=== PATIENT | female | born 1980 | race Caucasian/White ===

== ENCOUNTER → 2017-03-06 | Outpatient (CLI) | payer MEDICAID ==
--- NOTE | 2017-03-06 12:40 | RADIOLOGY REPORT (SQ) ---
EXAM DESCRIPTION: LUMBAR SPINE COMPLETE COMPLETED DATE/TIME: 03/06/2017 12:07 pm REASON FOR STUDY: RADICULOPATHY, LUMBAR REGION M54.16 RADICULOPATHY, LUMBAR REGION M25.561 PAIN IN RIGHT KNEE M25.562 PAIN IN LEFT KNEE COMPARISON: None. NUMBER OF VIEWS: Five views including obliques. TECHNIQUE: AP, lateral, oblique, and sacral radiographic images acquired of the lumbar spine. LIMITATIONS: None. FINDINGS: MINERALIZATION: Normal. SEGMENTATION: Normal. No transitional anatomy. ALIGNMENT: Normal. VERTEBRAE: Maintained height. No fracture or worrisome bone lesion. DISCS: There is mild narrowing of the disc spaces at L4-5 and L5-S1. POSTERIOR ELEMENTS: Pedicles and facets are intact. No pars defect or posterior arch defects. HARDWARE: None in the spine. PARASPINAL SOFT TISSUES: Normal. PELVIS: Intact as visualized. No fractures or worrisome bone lesions. SI joints intact. OTHER: No other significant finding. IMPRESSION: Mild degenerative disc changes as described. TECHNICAL DOCUMENTATION: JOB ID: [id number] [email or web address]- All Rights Reserved
--- NOTE | 2017-03-06 12:41 | RADIOLOGY REPORT (SQ) ---
EXAM DESCRIPTION: KNEE RIGHT 4 VIEWS COMPLETED DATE/TIME: 03/06/2017 12:07 pm REASON FOR STUDY: PAIN IN RIGHT KNEE M54.16 RADICULOPATHY, LUMBAR REGION M25.561 PAIN IN RIGHT KNE E M25.562 PAIN IN LEFT KNEE COMPARISON: None. NUMBER OF VIEWS: Four views. TECHNIQUE: AP, lateral, and both oblique radiographic images acquired of the right knee. LIMITATIONS: None. FINDINGS: MINERALIZATION: Normal. BONES: No acute fracture or dislocation. No worrisome bone lesions. JOINT: No effusion. SOFT TISSUES: No soft tissue swelling. No radio-opaque foreign body. OTHER: No other significant finding. IMPRESSION: NEGATIVE STUDY OF THE RIGHT KNEE. NO RADIOGRAPHIC EVIDENCE OF ACUTE INJURY. TECHNICAL DOCUMENTATION: JOB ID: [id number] [employer]- All Rights Reserved
--- NOTE | 2017-03-06 12:42 | RADIOLOGY REPORT (SQ) ---
EXAM DESCRIPTION: KNEE LEFT 4 VIEWS COMPLETED DATE/TIME: 03/06/2017 12:07 pm REASON FOR STUDY: PAIN IN LEFT KNEE M54.16 RADICULOPATHY, LUMBAR REGION M25.561 PAIN IN RIGHT KNEE M25.562 PAIN IN LEFT KNEE COMPARISON: None. NUMBER OF VIEWS: Four views. TECHNIQUE: AP, lateral, and both oblique radiographic images acquired of the left knee. LIMITATIONS: None. FINDINGS: MINERALIZATION: Normal. BONES: No acute fracture or dislocation. No worrisome bone lesions. JOINT: No effusion. SOFT TISSUES: No soft tissue swelling. No radio-opaque foreign body. OTHER: No other significant finding. IMPRESSION: NEGATIVE STUDY OF THE LEFT KNEE. NO RADIOGRAPHIC EVIDENCE OF ACUTE INJURY. TECHNICAL DOCUMENTATION: JOB ID: [id number] [email or web address]- All Rights Reserved
== END ==
LOC: OD 11:36
PROVIDERS: ATTEND Family Medicine
DX: M54.16 Radiculopathy, lumbar region (principal); M25.561 Pain in right knee; M25.562 Pain in left knee
CPT/HCPCS: 72110

== ENCOUNTER 2017-04-30 13:45 | Emergency (ER) | payer MEDICAID ==
[2017-04-30 13:53] VITALS: BP 133/85
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
--- NOTE | 2017-04-30 14:50 | RADIOLOGY REPORT (SQ) ---
EXAM DESCRIPTION: HAND RIGHT 3 VIEWS COMPLETED DATE/TIME: 04/30/2017 2:38 pm REASON FOR STUDY: right hand pain COMPARISON: None. EXAM PARAMETERS: NUMBER OF VIEWS: Three views. TECHNIQUE: AP, lateral and oblique radiographic images acquired of the right hand. LIMITATIONS: None. FINDINGS: MINERALIZATION: Normal. BONES: No acute fracture or dislocation. No worrisome bone lesions. JOINTS: No effusions. SOFT TISSUES: No soft tissue swelling. No foreign body. OTHER: No other significant finding. IMPRESSION: NEGATIVE STUDY OF THE RIGHT HAND. NO RADIOGRAPHIC EVIDENCE OF ACUTE INJURY. TECHNICAL DOCUMENTATION: JOB ID: [id number] [employer]- All Rights Reserved
== END 2017-04-30 15:02 | disposition home or self-care (01) ==
LOC: ER 13:45
DX: S16.1XXA Strain of muscle, fascia and tendon at neck level, initial encounter (principal); M54.9 Dorsalgia, unspecified; M54.2 Cervicalgia; M79.641 Pain in right hand; Y04.8XXA Assault by other bodily force, initial encounter
CPT/HCPCS: 99284

== ENCOUNTER 2017-05-06 11:28 | Emergency (ER) | payer MEDICAID ==
--- NOTE | 2017-05-06 11:43 | ER Document Report ---
ED Medical Screen (RME) - General Chief Complaint: Near Syncope Stated Complaint: DIZZINESS Time Seen by Provider: 05/06/17 11:41 Notes: Patient states that since yesterday she has been feeling "lightheaded, woozy, and dizzy." She also states she has had a near syncopal episode. She states she still feels this way this morning. She had one loose stool. She has had nausea. She denies any vomiting. She denies any problems with urination. She states she does take gabapentin for chronic pain but is been on this for approximately 1 month. She also states that she was started on some psychiatric medications 1 month ago including Abilify. She has never had similar symptoms in the past. TRAVEL OUTSIDE OF THE [place] IN LAST 30 DAYS: No - Related Data Allergies/Adverse Reactions: clonidine Allergy (Verified 04/30/17 13:52) ketorolac [From Toradol] Allergy (Verified 04/30/17 13:52) tramadol Allergy (Verified 04/30/17 13:52) Past Medical History - Social History Frequency of alcohol use: None Drug Abuse: None Renal/ Medical History: Denies: Hx Peritoneal Dialysis Physical Exam - Vital signs Vitals: Temp Pulse Resp BP Pulse Ox 98.6 F 80 99 H 124/85 99 05/06/17 11:32 05/06/17 11:32 05/06/17 11:32 05/06/17 11:32 05/06/17 11:32 Course - Vital Signs Vital signs: Temp Pulse Resp BP Pulse Ox 98.6 F 80 99 H 124/85 99 05/06/17 11:32 05/06/17 11:32 05/06/17 11:32 05/06/17 11:32 05/06/17 11:32
--- NOTE | 2017-05-06 12:03 | EKG REPORT ---
SEVERITY:- BORDERLINE ECG - SINUS RHYTHM INFERIOR Q WAVES, PROBABLY NORMAL VARIATION : Confirmed by: Oc Tena 06-May-2017 12:03:11
[2017-05-06 12:19] LABS: ABSOLUTE EOSINOPHILS # (AUTO) 0.2 10^3/uL (0.0-0.6); ABSOLUTE LYMPHOCYTES (AUTO) 1.9 10^3/uL (0.5-4.7); ABSOLUTE MONOCYTES (AUTO) 0.6 10^3/uL (0.1-1.4); ABSOLUTE NEUT (AUTO) 9.2 10^3/uL (1.7-8.2); BASOPHILS % (AUTO) 0.4 % (0-2); EOSINOPHILS % (AUTO) 1.6 % (0-6); HEMATOCRIT 35.5 % (36.0-47.0); HEMOGLOBIN 12.2 g/dL (12.0-15.5); HGB HCT DIFFERENCE 1.1; LYMPHOCYTES % (AUTO) 15.6 % (13-45); MEAN CORPUSCULAR HGB CONC 34.4 g/dL (32.0-36.0); MEAN CORPUSCULAR VOLUME 84 fl (80-97); MONOCYTES % (AUTO) 5.3 % (3-13); RED BLOOD COUNT 4.22 10^6/uL (3.72-5.28); RED CELL DISTRIBUTION WIDTH 13.7 % (11.5-14.0); SEGMENTED NEUTROPHILS % (AUTO) 77.1 % (42-78); WHITE BLOOD COUNT 11.9 10^3/uL (4.0-10.5)
[2017-05-06 12:43] LABS: ALANINE AMINOTRANSFERASE 21 U/L (9-52); ALBUMIN 4.5 g/dL (3.5-5.0); ALKALINE PHOSPHATASE 72 U/L (38-126); ANION GAP 14 (5-19); ASPARTATE AMINO TRANSFERASE 14 U/L (14-36); BILIRUBIN,DIRECT 0.4 mg/dL (0.0-0.4); BILIRUBIN,TOTAL 0.4 mg/dL (0.2-1.3); BLOOD UREA NITROGEN 13 mg/dL (7-20); CALCIUM 9.7 mg/dL (8.4-10.2); CARBON DIOXIDE 23 mmol/L (22-30); CHLORIDE 106 mmol/L (98-107); CREATININE RESULT 0.78 mg/dL (0.52-1.25); GLUCOSE 84 mg/dL (75-110); POTASSIUM 4.4 mmol/L (3.6-5.0); SODIUM 142.6 mmol/L (137-145); TOTAL PROTEIN 7.7 g/dL (6.3-8.2)
[2017-05-06 13:01] LABS: APPEARANCE,URINE CLEAR; BILIRUBIN,URINE NEGATIVE (NEGATIVE); GLUCOSE, URINE NEGATIVE (NEGATIVE); KETONES,URINE NEGATIVE (NEGATIVE); LEUKOCYTE ESTERASE,URINE TRACE (NEGATIVE); NITRITE,URINE NEGATIVE (NEGATIVE); PROTEIN,URINE NEGATIVE (NEGATIVE); URINE SPECIFIC GRAVITY 1.012; UROBILINOGEN,URINE NEGATIVE mg/dL (<2.0)
[2017-05-06] MEDS ORDERED: PROMETHAZINE HCL 25 MG TABLET PO ONE (13:41)
[2017-05-06] MEDS ORDERED: OXYCODONE-ACETAMINOPHEN 5-325 MG TABLET PO ONE (13:42)
[2017-05-06 14:42] VITALS: BP 111/96
--- NOTE | 2017-05-06 14:42 | ER Document Report ---
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 She said it was like she suddenly "woke up" and felt as if she might be going to pass out. She never actually lost consciousness. She has been experiencing lower abdominal pains for the past couple of months. Her PCP has ordered an ultrasound and it was done 3 weeks ago and has shown the patient to have endometriosis, fibroids, and ovarian cyst. She has a follow-up appointment with her physician in 9 days to discuss the results and plan of treatment. Patient says she has been nauseated but not vomiting. She had some diarrhea last night and this morning but not currently. She has had some lower mid abdominal pains, but these have been going on for him months. Says she has been feeling woozy. Denies any chest pain. Denies any UTI symptoms. LMP April 17. TRAVEL OUTSIDE OF THE [place] IN LAST 30 DAYS: No - Related Data Allergies/Adverse Reactions: clonidine Allergy (Verified 04/30/17 13:52) ketorolac [From Toradol] Allergy (Verified 04/30/17 13:52) tramadol Allergy (Verified 04/30/17 13:52) Home Medications: Current Home Medications Aripiprazole 10 mg PO DAILY 05/06/17 [History] Gabapentin 300 mg PO QAM 05/06/17 [History] Gabapentin 600 mg PO QHS 05/06/17 [History] Lamotrigine 2 tab PO DAILY 05/06/17 [History] Past Medical History - Social History Smoking Status: Current Every Day Smoker Frequency of alcohol use: None Drug Abuse: None Family History: Reviewed & Not Pertinent Patient has suicidal ideation: No Patient has homicidal ideation: No Psychiatric Medical History: Reports: Hx Bipolar Disorder, Hx Depression Past Surgical History: Reports: Hx Appendectomy, Hx Section Review of Systems - Review of Systems Notes: REVIEW OF SYSTEMS: CONSTITUTIONAL : Denies fever. EENT: Denies eye, ear, nose or mouth or throat pain or other symptoms. CARDIOVASCULAR: Denies chest pain. RESPIRATORY: Denies cough, chest congestion, or shortness of breath. GASTROINTESTINAL: See HPI. GENITOURINARY: Denies difficulty or painful urinating, urinary frequency, blood in urine. MUSCULOSKELETAL: Denies back or neck pain. Denies joint pain or swelling. SKIN: Denies rash or skin lesions. NEUROLOGICAL: Denies LOC or altered mental status. Denies headache. Denies sensory loss or motor deficits. ALL OTHER SYSTEMS REVIEWED AND NEGATIVE. Physical Exam - Vital signs Vitals: Temp Pulse Resp BP Pulse Ox 98.6 F 80 99 H 124/85 99 05/06/17 11:32 05/06/17 11:32 05/06/17 11:32 05/06/17 11:32 05/06/17 11:32 Interpretation: Normal - Notes Notes: PHYSICAL EXAMINATION: GENERAL: Well-appearing, in no acute distress. Anxious. Vital signs are all normal. HEAD: Atraumatic, normocephalic. NECK: Normal range of motion, supple. LUNGS: Breath sounds clear and equal bilaterally. HEART: Regular rate and rhythm without murmurs. ABDOMEN: Soft, mild tenderness in the lower abdomen, midline. No guarding or rebound. No masses felt. BACK: No tenderness throughout entire back. EXTREMITIES: Normal range of motion without pain. NEUROLOGICAL: Normal speech, normal gait. Normal sensory, motor, and reflex exams. Awake, alert, and oriented x3. Cranial nerves normal. PSYCH: Normal mood, normal affect. Anxious SKIN: Warm, dry, no rashes. Course - Re-evaluation Re-evalutation: 05/06/17 20:59 Labs essentially normal. Patient has just recently had an ultrasound of her pelvis showing endometriosis, fibroids, and ovarian cyst. I do not think we need to do another imaging procedure at this time. I do not think the patient has appendicitis. I am prescribing enough medication to hold the patient until she sees her physician in 9 days. - Vital Signs Vital signs: Temp Pulse Resp BP Pulse Ox 98.6 F 80 19 111/96 H 100 05/06/17 11:32 05/06/17 11:32 05/06/17 14:31 05/06/17 14:31 05/06/17 14:01 - Laboratory Result Diagrams: 05/06/17 11:58 05/06/17 11:58 Laboratory results interpreted by me: 05/06/17 05/06/17 11:58 11:58 WBC 11.9 H Hct 35.5 L Absolute Neutrophils 9.2 H Ur Leukocyte Esterase TRACE H Discharge - Discharge Clinical Impression: Near syncope, Abdominal pain, Vasovagal episode Condition: Stable Disposition: HOME, SELF-CARE Additional Instructions: NEAR SYNCOPAL EPISODE: Syncope or near syncope (fainting or near-fainting) can occur from many different health problems. Or it can be a simple fainting spell requiring no treatment. It is safe for you to go home, but further evaluation will likely be necessary. Your work-up may include tests for internal bleeding, heart disease, medication problems, or near-strokes. Tests are not always required, however, depending on the nature of your problem. The warning signs of an impending faint include: dizziness, lightheadedness , nausea, hot flashes, tingling, and weakness. If this happens, lay down and put your feet up, then wait until all of these symptoms have passed before standing up again. If these episodes become recurrent, or if you develop chest pain, heart palpitations, mental confusion, blurred vision, or headache, then you should call the physician, or go to the emergency room. ABDOMINAL PAIN: There are many causes of abdominal pain. Pain can mean a serious problem requiring surgery (such as appendicitis). It can also be an innocent problem that goes away on its own (such as a viral infection). Often, time must pass to determine the cause of pain. The physician does not feel that hospitalization is necessary, at present. Things may change within the next 24 hours. Call the doctor or come back for re- examination if any problems occur, such as: (1) Pain that becomes more severe, steady, or becomes concentrated in one specific area. Also, pain that is more severe with movement or coughing. (2) Vomiting that persists or becomes more frequent. (3) Blood in the vomitus, urine, or bowel movements. Blood in the stool may have a tarry or black appearance. (4) Shaking chills or fever greater than 100 degrees F. (5) The abdomen becomes more distended or swollen. (6) Bowel movements cease. (7) Failure to improve as expected. Vasovagal Symptoms Your symptoms seem to be due to a fall in blood pressure, caused by the interaction of your nervous system with your circulatory system. This can result in abnormally slow pulse rate, faintness, abnormal sensations, low blood pressure, difficulty with vision, or fainting (syncope). Vasovagal symptoms may be brought on by emotional distress, pain, dehydration, bleeding, or medication effects. Often, no cause can be identified. Your exam has revealed no signs of a serious problem. Usually, no further tests are required. However, if further workup has been recommended it's important that you follow up as instructed. Should you feel lightheaded or "about to faint," you should sit or lie down as quickly as possible. The episode will usually pass. Recurring symptoms will require further evaluation to determine the cause. Call the physician if you develop severe prolonged dizziness, headache, chest pain, shortness of breath, or other new symptoms. NORMAL EXAM AND WORKUP: At this time, your examination and workup show no significant abnormality. No significant abnormal physical findings are noted. All laboratory, EKG, and imaging (x-ray, CT scans, ultrasound) studies that were ordered show no significant abnormality. Although your examination and all studies that were ordered showed no significant abnormal finding, there are no examinations and no studies that are 100% accurate. There is always the possibility that some abnormality could exist and not be detected with physical examination or within the limits and capabilities of laboratory and other studies. You should return or follow up as you were instructed on your visit today for further evaluation if your symptoms do not resolve. ANTINAUSEA MEDICATION: You have been given a medication to suppress nausea and vomiting. This type of medication can be given as a shot, pill, or suppository. It will usually last for many hours. Pills and shots usually last six to eight hours, suppositories last about 12 hours. For the typical illness, only one or two doses of the medication may be necessary. Mild lightheadedness may occur. This type of medicine can cause drowsiness. Do not drive or operate dangerous machinery while under its influence. Do not mix with alcohol. See your doctor at once if you have muscle spasms or tightness, or uncontrollable motions (particularly of the neck, mouth, or jaw). Persistent vomiting or severe lightheadedness should also be evaluated by the physician. Ibuprofen Ibuprofen is an excellent, safe drug for pain control. In addition, it has potent antiinflammatory effects which are beneficial, especially in the treatment of injuries, arthritis, or tendonitis. It's best to take ibuprofen with food. Persons with ulcer disease or allergy to aspirin should notify their physician of this before taking ibuprofen. Take the medication exactly as prescribed. Don't take additional doses unless instructed to do so by your doctor. If you develop wheezing, shortness of breath, hives, faintness, stomach pain, vomiting, or dark black stools, return for re-evaluation at once. ORAL NARCOTIC MEDICATION: You have been given a prescription for pain control. This medication is a narcotic. It's best taken with food, as nausea can result if taken on an empty stomach. Don't operate machinery or drive within six hours of taking this medication. Do not combine this medicine with alcohol, or with any medication which can cause sedation (such as cold tablets or sleeping pills) unless you get permission from the physician. Narcotics tend to cause constipation. If possible, drink plenty of fluids and eat a diet high in fiber and fruits. FOLLOW-UP CARE: If you have been referred to a physician for follow-up care, call the physician s office for an appointment as you were instructed or within the next two days. If you experience worsening or a significant change in your symptoms, notify the physician immediately or return to the Emergency Department at any time for re-evaluation. Keep your appointment to see your [facility] doctors in 9 days for further medication and a treatment plan for your condition. Prescriptions: Oxycodone HCl/Acetaminophen [Percocet 5-325 mg Tablet] 1 - 2 tab PO Q4H PRN #20 tablet PRN Reason: Promethazine HCl [Phenergan 25 mg Tablet] 1 - 2 tab PO Q6H PRN #20 tablet PRN Reason: Forms: Return to Work Referrals: BARBY OSMAN DO [Primary Care Provider] - Follow up as needed
== END 2017-05-06 14:53 | disposition home or self-care (01) ==
LOC: ER 11:28
DX: R55 Syncope and collapse (principal); R42 Dizziness and giddiness; R10.9 Unspecified abdominal pain; F17.200 Nicotine dependence, unspecified, uncomplicated
CPT/HCPCS: 93005; 99284; 36415; 87086; 85025; 81025; 87088; 80053; 81001; 87186; 93010; J3490

== ENCOUNTER 2017-05-11 08:34 | Emergency (ER) | payer MEDICAID ==
[2017-05-11 09:54] LABS: ABSOLUTE BASOPHILS # (AUTO) 0.1 10^3/uL (0.0-0.2); ABSOLUTE EOSINOPHILS # (AUTO) 0.2 10^3/uL (0.0-0.6); ABSOLUTE LYMPHOCYTES (AUTO) 1.4 10^3/uL (0.5-4.7); ABSOLUTE MONOCYTES (AUTO) 0.5 10^3/uL (0.1-1.4); ABSOLUTE NEUT (AUTO) 7.1 10^3/uL (1.7-8.2); BASOPHILS % (AUTO) 0.8 % (0-2); EOSINOPHILS % (AUTO) 1.7 % (0-6); HEMATOCRIT 33.7 % (36.0-47.0); HEMOGLOBIN 11.5 g/dL (12.0-15.5); HGB HCT DIFFERENCE 0.8; MEAN CORPUSCULAR HEMOGLOBIN 28.9 pg (27.0-33.4); MEAN CORPUSCULAR HGB CONC 34.2 g/dL (32.0-36.0); MEAN CORPUSCULAR VOLUME 85 fl (80-97); MONOCYTES % (AUTO) 5.7 % (3-13); RED BLOOD COUNT 3.99 10^6/uL (3.72-5.28); RED CELL DISTRIBUTION WIDTH 13.9 % (11.5-14.0); SEGMENTED NEUTROPHILS % (AUTO) 76.8 % (42-78); WHITE BLOOD COUNT 9.2 10^3/uL (4.0-10.5)
[2017-05-11] MEDS ORDERED: ONDANSETRON 4 MG TAB.RAPDIS PO ONE (09:58)
--- NOTE | 2017-05-11 10:00 | ER Document Report ---
ED General - General Chief Complaint: Lower Abdominal Pain Stated Complaint: ABDOMINAL PAIN Time Seen by Provider: 05/11/17 09:12 TRAVEL OUTSIDE OF THE [place] IN LAST 30 DAYS: No - HPI Notes: Patient is a 37-year-old female with a history of endometriosis, uterine fibroids, ovarian cysts who presents the ED complaining of continued/worsening pelvic cramping and pain 1-2 months. Pt does have associated nausea w/o vomiting today. Patient states that she was evaluated a week or 2 ago and was given Percocets which she states she has been taking like candy and has not been helping as much. Patient states that she is scheduled to see STRUCTURES ENGINEER next week. She still eating and drinking without any difficulties. She still urinating and having normal bowel movements. She denies any vaginal discharge or odor. Patient states that she is sexually active in a monogamous relationship and her partners asymptomatic for any signs or symptoms of STDs. Denies any headache, fever, URI, sore throat, chest pain, palpitations, syncope , cough, shortness of breath, wheeze, dyspnea, abdominal pain, vomiting/diarrhea , urinary retention, dysuria, hematuria, or rash. Patient states that she has had 3 C-sections in the past as well as an appendectomy. - Related Data Allergies/Adverse Reactions: clonidine Allergy (Verified 05/11/17 08:37) ketorolac [From Toradol] Allergy (Verified 05/11/17 08:37) tramadol Allergy (Verified 05/11/17 08:37) Past Medical History - Social History Smoking Status: Current Every Day Smoker Chew tobacco use (# tins/day): No Frequency of alcohol use: None Drug Abuse: None Family History: Reviewed & Not Pertinent Patient has suicidal ideation: No Patient has homicidal ideation: No Renal/ Medical History: Denies: Hx Peritoneal Dialysis Psychiatric Medical History: Reports: Hx Bipolar Disorder, Hx Depression Past Surgical History: Reports: Hx Appendectomy, Hx Section Review of Systems - Review of Systems Notes: REVIEW OF SYSTEMS: CONSTITUTIONAL : Denies fever, chills, or sweats. Denies recent illness. EENT: Denies eye, ear, throat, or mouth pain or symptoms. Denies nasal or sinus congestion or discharge. Denies throat, tongue, or mouth swelling or difficulty swallowing. CARDIOVASCULAR: Denies chest pain. Denies palpitations or racing or irregular heart beat. Denies ankle edema. RESPIRATORY: Denies cough, cold, or chest congestion. Denies shortness of breath, difficulty breathing, or wheezing. GASTROINTESTINAL: see hpi GENITOURINARY: Denies difficulty urinating, painful urination, burning, frequency, blood in urine, or discharge. FEMALE GENITOURINARY: see hpi. Denies vaginal bleeding, heavy or abnormal periods, irregular periods. Denies vaginal discharge or odor. MUSCULOSKELETAL: Denies back or neck pain or stiffness. Denies joint pain or swelling. SKIN: Denies rash, lesions or sores. NEUROLOGICAL: Denies confusion or altered mental status. Denies passing out or loss of consciousness. Denies dizziness or lightheadedness. Denies headache. Denies weakness or paralysis or loss of use of either side. Denies problems with gait or speech. Denies sensory loss, numbness, or tingling. ALL OTHER SYSTEMS REVIEWED AND NEGATIVE. Dictation was performed using [employer] voice recognition software Physical Exam - Vital signs Vitals: Temp Pulse Resp BP Pulse Ox 98.6 F 80 18 129/87 H 100 05/11/17 08:37 05/11/17 08:37 05/11/17 08:37 05/11/17 08:37 05/11/17 08:37 Notes: PHYSICAL EXAMINATION: GENERAL: Well-appearing, well-nourished and in no acute distress. LUNGS: Breath sounds clear to auscultation bilaterally and equal. No wheezes rales or rhonchi. HEART: Regular rate and rhythm without murmurs ABDOMEN: Soft, nontender, nondistended abdomen. No guarding, no rebound. No masses appreciated. Normal bowel sounds present. CVA tenderness negative bilaterally. Female : + mild pelvic tenderness b/l. No inguinal adenopathy. External genitalia without erythema, lesions, or masses. Vaginal mucosa pink with scant white discharge. Cervix parous, pink, and without discharge. Uterus is smooth. No adnexal tenderness. Musculoskeletal: LE's b/l: FROM to passive/active. Strength 5+/5. Extremities: No cyanosis/clubbing/edema b/l. Peripheral pulses 2+. Capillary refill less than 3 seconds. NEUROLOGICAL: Normal speech, normal gait. Normal sensory, motor exams PSYCH: Normal mood, normal affect. SKIN: Warm, Dry, normal turgor, no rashes or lesions noted. Course - Re-evaluation Re-evalutation: 05/11/17 11:00 Patient is an afebrile, well-hydrated, 37-year-old female who presents the ED with pelvic pain and bacterial vaginosis. Vitals are stable. PE otherwise unremarkable at this time. Transvaginal ultrasound was unremarkable for any acute pathology. CBC, CMP, urinalysis, urine were all negative. Wet mount did show bacterial vaginosis without any trichomonas. Chlamydia/ gonorrhea are pending. Patient was given Zithromax 1g PO and Rocephin 250 mg IM as precautionary. Patient to call back in a few hours or she will be called if a positive test is found. Tylenol/ibuprofen given for pain control today. Low suspicion/risk for acute appendicitis, bowel obstruction, acute cholecystitis, acute cholangitis, perforated diverticulitis, incarcerated hernia , pancreatitis, perforated ulcer, peritonitis, sepsis, pelvic inflammatory disease, ectopic , tubo-ovarian abscess, ovarian torsion, or other systemic emergent condition at this time. Patient is aware that her condition can change from initial presentation and she needs to monitor symptoms closely and seek medical attention if any acute changes. I will send her home with a Rx for flagyl, naproxen, and zofran. Pt tolerating PO intake. Conservative measures otherwise for symptoms. Recheck with OBGYN as scheduled next week or sooner if warranted. Recheck with your PCM this week as well. Return to the ED with any worsening/concerning symptoms otherwise as reviewed in discharge. Patient is in agreement. - Vital Signs Vital signs: Temp Pulse Resp BP Pulse Ox 98.6 F 80 18 129/87 H 100 05/11/17 08:37 05/11/17 08:37 05/11/17 08:37 05/11/17 08:37 05/11/17 08:37 - Laboratory Result Diagrams: 05/11/17 09:45 05/11/17 09:45 Laboratory results interpreted by me: 05/11/17 05/11/17 09:45 09:45 Hgb 11.5 L Hct 33.7 L AST 12 L Discharge - Discharge Clinical Impression: Pelvic pain, BV (bacterial vaginosis) Condition: Stable Disposition: HOME, SELF-CARE Instructions: Pelvic Pain ([facility]), Vaginosis, Bacterial ([facility]), Metronidazole ([facility] ) Additional Instructions: Push fluids Proper hygenic technique Keep the skin clean Tylenol/ibuprofen as needed Take medications as directed F/u with your PCM this week for a recheck Keep scheduled appointment with OBGYN next week Return to the ED with any worsening symptoms and/or development of fever, headache, chest pain, palpitations, syncope, shortness of breath, trouble breathing, abdominal pain, flank pain, n/v/d, blood in stool/urine, dysuria, hematuria, vaginal discharge/bleeding, or other worsening symptoms that are concerning to you. Prescriptions: Metronidazole [Flagyl] 500 mg PO BID #14 tablet Naproxen 500 mg PO BID PRN #30 tablet PRN Reason: Ondansetron [Zofran Odt 4 mg Tablet] 1 - 2 tab PO Q4H PRN #15 tab.rapdis PRN Reason: For Nausea/Vomiting Forms: Elevated Blood Pressure, Smoking Cessation Education Referrals: [facility] [Provider Group] - Follow up as needed BARBY OSMAN DO [Primary Care Provider] - Follow up in 3-5 days
[2017-05-11] MEDS ORDERED: IBUPROFEN 600 MG TABLET PO ONE (10:03)
[2017-05-11] MEDS ORDERED: ACETAMINOPHEN 325 MG TABLET PO ONE (10:03)
[2017-05-11 10:12] LABS: ALANINE AMINOTRANSFERASE 18 U/L (9-52); ALBUMIN 3.7 g/dL (3.5-5.0); ALKALINE PHOSPHATASE 59 U/L (38-126); ANION GAP 8 (5-19); ASPARTATE AMINO TRANSFERASE 12 U/L (14-36); BILIRUBIN,DIRECT 0.3 mg/dL (0.0-0.4); BILIRUBIN,TOTAL 0.3 mg/dL (0.2-1.3); BLOOD UREA NITROGEN 16 mg/dL (7-20); CALCIUM 9.8 mg/dL (8.4-10.2); CARBON DIOXIDE 25 mmol/L (22-30); CHLORIDE 107 mmol/L (98-107); CREATININE RESULT 0.72 mg/dL (0.52-1.25); GLUCOSE 89 mg/dL (75-110); POTASSIUM 4.2 mmol/L (3.6-5.0); SODIUM 140.3 mmol/L (137-145); TOTAL PROTEIN 6.6 g/dL (6.3-8.2)
[2017-05-11 10:16] LABS: APPEARANCE,URINE SLIGHTLY-CLOUDY; BILIRUBIN,URINE NEGATIVE (NEGATIVE); GLUCOSE, URINE NEGATIVE (NEGATIVE); KETONES,URINE NEGATIVE (NEGATIVE); LEUKOCYTE ESTERASE,URINE NEGATIVE (NEGATIVE); NITRITE,URINE NEGATIVE (NEGATIVE); PROTEIN,URINE NEGATIVE (NEGATIVE); URINE SPECIFIC GRAVITY 1.018; UROBILINOGEN,URINE NEGATIVE mg/dL (<2.0)
[2017-05-11] MEDS ORDERED: LIDOCAINE 1% INJ-PF (10 MG/ML) 30 ML SDV INJ ONE (10:33)
[2017-05-11] MEDS ORDERED: AZITHROMYCIN 250 MG TABLET PO ONE (10:33)
[2017-05-11] MEDS ORDERED: CEFTRIAXONE INJ 1000 MG VIAL IM ONE (10:33)
--- NOTE | 2017-05-11 10:58 | RADIOLOGY REPORT (SQ) ---
EXAM DESCRIPTION: U/S NON OB PEL TV W/DOPPLER COMPLETED DATE/TIME: 05/11/2017 10:50 am REASON FOR STUDY: pelvic pain COMPARISON: None. TECHNIQUE: Dynamic and static grayscale images acquired of the pelvis via transvaginal approach and recorded on PACS. Additional selected color Doppler and spectral images recorded. LIMITATIONS: None. FINDINGS: UTERUS: Contour normal. No mass. ENDOMETRIAL STRIPE: No focal or generalized thickening. No masses. CERVIX: No nabothian cysts. RIGHT OVARY: No abnormal masses. RIGHT OVARY DOPPLER: Normal arterial vascular flow without evidence for torsion. LEFT OVARY: No abnormal masses. LEFT OVARY DOPPLER: Normal arterial vascular flow without evidence for torsion. FREE FLUID: Mild free fluid which is likely physiologic. OTHER: No other significant finding. MEASUREMENTS: UTERUS: 10.2 x 6.3 x 5.7 cm. ENDOMETRIAL STRIPE: 12 mm. RIGHT OVARY: 3.7 x 2.4 x 2.5 cm. LEFT OVARY: 3.0 x 2.1 x 1.5 cm. IMPRESSION: NORMAL TRANSVAGINAL PELVIC ULTRASOUND. TECHNICAL DOCUMENTATION: JOB ID: [id number] [email or web address]- All Rights Reserved
[2017-05-11 11:32] VITALS: BP 132/81
[2017-05-11 11:40] LABS: CHLAM PCR NOT DETECTED (NOT DETECT)
== END 2017-05-11 11:31 | disposition home or self-care (01) ==
LOC: ER 08:34
DX: N76.0 Acute vaginitis (principal); B96.89 Other specified bacterial agents as the cause of diseases classified elsewhere; R10.2 Pelvic and perineal pain; R11.0 Nausea; F17.200 Nicotine dependence, unspecified, uncomplicated; Z88.8 Allergy status to other drugs, medicaments and biological substances; Z88.5 Allergy status to narcotic agent; Z87.42 Personal history of other diseases of the female genital tract; Z90.49 Acquired absence of other specified parts of digestive tract
CPT/HCPCS: 99284; 96372; 36415; 87210; 85025; 81025; 80053; 81001; 87491; 87591; 76830; 93976; J3490 ×3; Q0144; S0119; J0696

== ENCOUNTER 2020-06-10 17:08 | Observation (INO) | payer SELFPAY ==
--- NOTE | 2020-06-10 17:24 | ER Document Report ---
ED Medical Screen (RME) - General Chief Complaint: Numbness of Arm Stated Complaint: LEFT ARM NUMBNESS,FACIAL TINGLING Time Seen by Provider: 06/10/20 17:18 Mode of Arrival: Ambulatory Information source: Patient Notes: 40-year-old female presents to ED for complaint of blurry vision pain and numbness in her right arm and could not think about what she supposed to do while she was in the [employer] parking lot. He states it lasted maybe about 5 to 10 minutes. She states then she was driving down the road and her right arm got normal. She states that lasted for 5 minutes and then came back. She states then the left arm became numb and heavy and this is lasted about 30 minutes now. She states it feels like it is just and hanging there. She does not have any facial droop, palmar drift, shift to her tongue. And is able to answer all questions appropriately. She is able to move both arms with full range of motion. She is able to lift both legs with no difficulty. I did order the stroke protocol due to the symptoms she was displaying. She will also need cardiac work-up due to the numbness in her pain and while I was talking to her she stated that her jaw started feeling weird. I have greeted and performed a rapid initial assessment of this patient. A comprehensive ED assessment and evaluation of the patient, analysis of test results and completion of medical decision making process will be conducted by an additional ED providers. TRAVEL OUTSIDE OF THE [place] IN LAST 30 DAYS: No - Related Data Allergies/Adverse Reactions: clonidine Allergy (Verified 05/11/17 08:37) ketorolac [From Toradol] Allergy (Verified 05/11/17 08:37) tramadol Allergy (Verified 05/11/17 08:37) Past Medical History Renal/ Medical History: Denies: Hx Peritoneal Dialysis Psychiatric Medical History: Reports: Hx Bipolar Disorder, Hx Depression Past Surgical History: Reports: Hx Appendectomy, Hx Section
[2020-06-10] MEDS ORDERED: ASPIRIN 325 MG TABLET PO ONE (17:38)
--- NOTE | 2020-06-10 17:39 | ER Document Report ---
ED Neuro Symptoms/Deficit - General Chief Complaint: Numbness of Arm Stated Complaint: LEFT ARM NUMBNESS,FACIAL TINGLING Time Seen by Provider: 06/10/20 17:18 Mode of Arrival: Ambulatory Notes: HPI: Patient is a 40-year-old female that presents today stating around 45 minutes prior to arrival she started to feel some numbness to her right hand and some blurry vision. She states she then started to feel some weakness to her left arm. This lasted around 10 to 15 minutes. She states very mild frontal headache that resolved spontaneously. No chest pain, shortness of breath, palpitations, calf pain or leg swelling. No recent trips or travel. No history of this previously. She states her father had a myocardial infarction at the age of 40. She is currently without symptoms. She was called as a code stroke from the front. ROS: See HPI All other review of systems reviewed and otherwise negative Reviewed vital signs and nursing note as charted by RN. PHYSICAL EXAM: CONSTITUTIONAL: Alert and oriented and responds appropriately to questions. Well-appearing; well-nourished HEAD: Normocephalic; atraumatic EYES: PERRL; full extraocular range of motion without nystagmus ENT: Normal nose; no rhinorrhea; moist mucous membranes; pharynx without lesions noted NECK: Supple without meningismus; non-tender; no cervical lymphadenopathy, no masses CARD: Regular rate and rhythm; no murmurs; symmetric distal pulses RESP: Normal chest excursion without splinting or tachypnea; breath sounds clear and equal bilaterally ABD/GI: Normal bowel sounds; non-distended; soft, non-tender BACK: The back appears normal and is non-tender to palpation EXT: Normal ROM in all joints; non-tender to palpation; no edema SKIN: No acute lesions noted NEURO: CN 2-12 intact; 5/5 bilateral upper and lower extremity strength with sensation intact to light touch; no cerebellar deficits PSYCH: The patient's mood and manner are appropriate. Grooming and personal hygiene are appropriate. TRAVEL OUTSIDE OF THE [place] IN LAST 30 DAYS: No - Related Data Allergies/Adverse Reactions: clonidine Allergy (Verified 05/11/17 08:37) ketorolac [From Toradol] Allergy (Verified 05/11/17 08:37) tramadol Allergy (Verified 05/11/17 08:37) Past Medical History - General Information source: Patient - Social History Smoking Status: Unknown if Ever Smoked Family History: Reviewed & Not Pertinent Renal/ Medical History: Denies: Hx Peritoneal Dialysis Psychiatric Medical History: Reports: Hx Bipolar Disorder, Hx Depression Past Surgical History: Reports: Hx Appendectomy, Hx Section Physical Exam - Vital signs Vitals: Temp Pulse Resp BP Pulse Ox 97.8 F 78 18 148/91 H 99 06/10/20 17:19 06/10/20 17:19 06/10/20 17:19 06/10/20 17:19 06/10/20 17:19 Course - Re-evaluation Re-evalutation: Given the above history and physical examination the patient was taken immediately to CT scan. NIH score was 0. Van negative. I do not believe that the patient is a TPA candidate or an extraction candidate at this time. 06/10/20 17:40 CT as recorded. Aspirin has been provided. Given the time onset of symptomatology with a CT scan performed in 90 minutes, I do believe the risk of a missed subarachnoid hemorrhage to be extraordinarily unlikely. Especially given that the patient has no pain at this time. EKG shows a heart rate of 85, normal sinus rhythm, normal axis, no ST elevation or depression. 06/10/20 18:11 No change in exam. Labs as recorded. Patient will be admitted for further evaluation and treatment. - Vital Signs Vital signs: Temp Pulse Resp BP Pulse Ox 97.8 F 90 18 139/87 H 99 06/10/20 17:46 06/10/20 17:46 06/10/20 17:46 06/10/20 17:46 06/10/20 17:46 - Laboratory Result Diagrams: 06/10/20 17:34 06/10/20 17:34 Laboratory results interpreted by me: 06/10/20 06/10/20 06/10/20 17:32 17:34 17:34 WBC 13.2 H MCV 79 L MCH 26.8 L RDW 15.6 H Lymph % (Auto) 7.8 L Absolute Neuts (auto) 11.0 H Seg Neutrophils % 83.7 H Glucose 125 H POC Glucose 136 H Discharge - Discharge Clinical Impression: Right arm numbness, Aphasia Condition: Fair Disposition: ADMITTED OBSERVATION Admitting Provider: Dez (Hospitalist) Unit Admitted: Telemetry
--- NOTE | 2020-06-10 17:42 | RADIOLOGY REPORT (SQ) ---
EXAM DESCRIPTION: CT HEAD WITHOUT IMAGES COMPLETED DATE/TIME: 06/10/2020 5:29 pm REASON FOR STUDY: possible stroke COMPARISON: None. TECHNIQUE: Axial images acquired through the brain without intravenous contrast. Images reviewed wi th bone, brain and subdural windows. Additional sagittal and coronal reconstructions were generated. Images stored on PACS. All CT scanners at this facility use dose modulation, iterative reconstruction, and/or weight based d osing when appropriate to reduce radiation dose to as low as reasonably achievable (ALARA). [facility]: Dose Right [facility]: CareDose [facility]: Dose Right [facility]: Teradose 4D [facility]: [email or web address] RADIATION DOSE: CT Rad equipment meets quality standard of care and radiation dose reduction techniq ues were employed. CTDIvol: 53.2 mGy. DLP: 1017 mGy-cm. mGy. LIMITATIONS: None. FINDINGS: VENTRICLES: Normal size and contour. CEREBRUM: No masses. No hemorrhage. No midline shift. No evidence for acute infarction. Normal gra y/white matter differentiation. No areas of low density in the white matter. CEREBELLUM: No masses. No hemorrhage. No alteration of density. No evidence for acute infarction. EXTRAAXIAL SPACES: No fluid collections. No masses. ORBITS AND GLOBE: No intra- or extraconal masses. Normal contour of globe without masses. CALVARIUM: No fracture. PARANASAL SINUSES: No fluid or mucosal thickening. SOFT TISSUES: No mass or hematoma. OTHER: No other significant finding. IMPRESSION: NORMAL BRAIN CT WITHOUT CONTRAST. EVIDENCE OF ACUTE STROKE: NO. COMMENT: Pertinent positive or negative findings of the imaging study reported as a CRITICAL EXAM t o the ED provider at17:36 on 06/10/2020. Category of Critical Exam: Stroke alert. Quality ID # [id number]: Final reports with documentation of one or more dose reduction techniques (e.g., Au tomated exposure control, adjustment of the mA and/or kV according to patient size, use of iterative reconstruction technique) TECHNICAL DOCUMENTATION: JOB ID: [id number] 2010 [email or web address]- All Rights Reserved Reading location - IP/workstation name: [email or web address]
--- NOTE | 2020-06-10 17:43 | RADIOLOGY REPORT (SQ) ---
EXAM DESCRIPTION: CHEST SINGLE VIEW IMAGES COMPLETED DATE/TIME: 06/10/2020 5:29 pm REASON FOR STUDY: possible stroke COMPARISON: None. EXAM PARAMETERS: NUMBER OF VIEWS: One view. TECHNIQUE: Single frontal radiographic view of the chest acquired. RADIATION DOSE: NA LIMITATIONS: None. FINDINGS: LUNGS AND PLEURA: No opacities, masses or pneumothorax. No pleural effusion. MEDIASTINUM AND HILAR STRUCTURES: No masses. Contour normal. HEART AND VASCULAR STRUCTURES: Heart normal in size. Normal vasculature. BONES: No acute findings. HARDWARE: None in the chest. OTHER: No other significant finding. IMPRESSION: NO ACUTE RADIOGRAPHIC FINDING IN THE CHEST. TECHNICAL DOCUMENTATION: JOB ID: [id number] 2010 [email or web address]- All Rights Reserved Reading location - IP/workstation name: [email or web address]
[2020-06-10 17:51] LABS: ABSOLUTE BASOPHILS # (AUTO) 0.1 10^3/uL (0.0-0.2); ABSOLUTE EOSINOPHILS # (AUTO) 0.2 10^3/uL (0.0-0.6); ABSOLUTE MONOCYTES (AUTO) 0.8 10^3/uL (0.1-1.4); BASOPHILS % (AUTO) 0.8 % (0-2); EOSINOPHILS % (AUTO) 1.4 % (0-6); HEMATOCRIT 36.5 % (36.0-47.0); HEMOGLOBIN 12.3 g/dL (12.0-15.5); LYMPHOCYTES % (AUTO) 7.8 % (13-45); MEAN CORPUSCULAR HEMOGLOBIN 26.8 pg (27.0-33.4); MEAN CORPUSCULAR HGB CONC 33.8 g/dL (32.0-36.0); MEAN CORPUSCULAR VOLUME 79 fl (80-97); MONOCYTES % (AUTO) 6.3 % (3-13); PLATELET COUNT 383 10^3/uL (150-450); RED BLOOD COUNT 4.61 10^6/uL (3.72-5.28); RED CELL DISTRIBUTION WIDTH 15.6 % (11.5-14.0); SEGMENTED NEUTROPHILS % (AUTO) 83.7 % (42-78); TOTAL CELLS COUNTED % (AUTO) 100 %; WHITE BLOOD COUNT 13.2 10^3/uL (4.0-10.5)
[2020-06-10 17:52] LABS: INTERNATIONAL RATION (INR) 0.97; PROTHROMBIN TIME 13.1 SEC (11.4-15.4)
[2020-06-10 17:53] LABS: PARTIAL THROMBOPLASTIN TIME 27.9 SEC (23.5-35.8)
[2020-06-10 18:05] LABS: ALBUMIN 4.2 g/dL (3.5-5.0); ALKALINE PHOSPHATASE 74 U/L (38-126); ANION GAP 9 (5-19); ASPARTATE AMINO TRANSFERASE 19 U/L (14-36); BILIRUBIN,DIRECT 0.2 mg/dL (0.0-0.4); BILIRUBIN,TOTAL 0.3 mg/dL (0.2-1.3); BLOOD UREA NITROGEN 11 mg/dL (7-20); CALCIUM 9.4 mg/dL (8.4-10.2); CARBON DIOXIDE 23 mmol/L (22-30); CHLORIDE 107 mmol/L (98-107); CREATINE KINASE 54 U/L (30-135); GLUCOSE 125 mg/dL (75-110); TOTAL PROTEIN 7.3 g/dL (6.3-8.2)
[2020-06-10 18:17] LABS: CREATINE KINASE MB 1.14 ng/mL (<4.55); TROPONIN I < 0.012 ng/mL
[2020-06-10] MEDS ORDERED: ONDANSETRON 4 MG TAB.RAPDIS PO PRN (18:30)
[2020-06-10] MEDS ORDERED: ACETAMINOPHEN 325 MG TABLET PO PRN (18:30)
[2020-06-10] MEDS ORDERED: DEXTROSE 5%-1/2 NORMAL SALINE 1,000 ML IV PRN (18:48)
--- NOTE | 2020-06-10 18:48 | PDOC H&P ---
History of Present Illness Admission Date/PCP: 06/10/20 18:17 Patient complains of: Numbness and tingling in both upper extremity which started this afternoon. Patient states symptoms have completely resolved. History of Present Illness: JOSELO PIERSON is a 40 year old female Who presented emergency room with numbness and tingling of upper extremity. Patient states she also had some loss of vision in both eyes. There was no associated nausea vomiting although she states she had like a posterior headaches. She said the symptoms lasted for about 2 hours. She went on to walk she was on her way and because her symptoms persisted she decided to come to the emergency room to get checked. She however says her symptoms are resolved by the time of my exam. She denies any prior history of such symptoms. She does smoke about a pack of cigarettes a week and denies any current alcohol abuse or drug use. She denies any other medication use. She denies any significant medical history Past Medical History Medical History: None Psychiatric Medical History: Reports: Bipolar Disorder, Depression Hematology: Reports: None Past Surgical History Past Surgical History: Reports: Appendectomy, Section Social History Smoking Status: Unknown if Ever Smoked - Advance Directive Resuscitation Status: Full Code Family History Family History: Reviewed & Not Pertinent Parental Family History Reviewed: Yes Children Family History Reviewed: No Sibling(s) Family History Reviewed.: No Medication/Allergy Home Medications: Aripiprazole 10 mg PO DAILY 05/06/17 Gabapentin 300 mg PO QAM 05/06/17 Gabapentin 600 mg PO QHS 05/06/17 Lamotrigine 2 tab PO DAILY 05/06/17 Oxycodone HCl/Acetaminophen [Percocet 5-325 mg Tablet] 1 - 2 tab PO Q4H PRN #20 tablet 05/06/17 Promethazine HCl [Phenergan 25 mg Tablet] 1 - 2 tab PO Q6H PRN #20 tablet 05/06/17 Metronidazole [Flagyl] 500 mg PO BID #14 tablet 05/11/17 Naproxen 500 mg PO BID PRN #30 tablet 05/11/17 Ondansetron [Zofran Odt 4 mg Tablet] 1 - 2 tab PO Q4H PRN #15 tab.rapdis 05/11/17 Allergies/Adverse Reactions: clonidine Allergy (Verified 05/11/17 08:37) ketorolac [From Toradol] Allergy (Verified 05/11/17 08:37) tramadol Allergy (Verified 05/11/17 08:37) Review of Systems Constitutional: ABSENT: chills, fever(s), headache(s), weight gain, weight loss Eyes: ABSENT: visual disturbances Ears: ABSENT: hearing changes Cardiovascular: ABSENT: chest pain, dyspnea on exertion, edema, orthropnea, palpitations Respiratory: ABSENT: cough, hemoptysis Gastrointestinal: ABSENT: abdominal pain, constipation, diarrhea, hematemesis, hematochezia, nausea, vomiting Genitourinary: ABSENT: dysuria, hematuria Musculoskeletal: ABSENT: joint swelling Integumentary: ABSENT: rash, wounds Neurological: ABSENT: abnormal gait, abnormal speech, confusion, dizziness, focal weakness, syncope Psychiatric: ABSENT: anxiety, depression, homidical ideation, suicidal ideation Endocrine: ABSENT: cold intolerance, heat intolerance, polydipsia, polyuria Hematologic/Lymphatic: ABSENT: easy bleeding, easy bruising Physical Exam Vital Signs: Temp Pulse Resp BP Pulse Ox 97.8 F 90 18 139/87 H 99 06/10/20 17:46 06/10/20 17:46 06/10/20 17:46 06/10/20 17:46 06/10/20 17:46 Intake & Output 06/09/20 06/10/20 06/11/20 06:59 06:59 06:59 Weight 97.7 kg General appearance: PRESENT: no acute distress, well-developed, well-nourished Head exam: PRESENT: atraumatic, normocephalic Eye exam: PRESENT: conjunctiva pink, EOMI, PERRLA. ABSENT: scleral icterus Ear exam: PRESENT: normal external ear exam Mouth exam: PRESENT: moist, tongue midline Neck exam: ABSENT: carotid bruit, JVD, lymphadenopathy, thyromegaly Respiratory exam: PRESENT: clear to auscultation mary. ABSENT: rales, rhonchi, wheezes Cardiovascular exam: PRESENT: RRR, +S1, +S2. ABSENT: diastolic murmur, rubs, systolic murmur Pulses: PRESENT: normal dorsalis pedis pul Vascular exam: PRESENT: normal capillary refill GI/Abdominal exam: PRESENT: normal bowel sounds, soft. ABSENT: distended, guarding, mass, organolmegaly, rebound, tenderness Rectal exam: PRESENT: deferred Extremities exam: PRESENT: full ROM. ABSENT: calf tenderness, clubbing, pedal edema Neurological exam: PRESENT: alert, awake, oriented to person, oriented to place, oriented to time, oriented to situation, CN II-XII grossly intact. ABSENT: motor sensory deficit Psychiatric exam: PRESENT: appropriate affect, normal mood. ABSENT: homicidal ideation, suicidal ideation Skin exam: PRESENT: dry, intact, warm. ABSENT: cyanosis, rash Results Laboratory Results: 06/10/20 17:34 06/10/20 17:34 06/10/20 06/10/20 17:34 17:34 WBC 13.2 H RBC 4.61 Hgb 12.3 Hct 36.5 MCV 79 L MCH 26.8 L MCHC 33.8 RDW 15.6 H Plt Count 383 Seg Neutrophils % 83.7 H Sodium 139.3 Potassium 4.0 Chloride 107 Carbon Dioxide 23 Anion Gap 9 BUN 11 Creatinine 0.64 Est GFR ( Amer) > 60 Glucose 125 H Calcium 9.4 Total Bilirubin 0.3 AST 19 Alkaline Phosphatase 74 Total Protein 7.3 Albumin 4.2 06/10/20 06/10/20 17:34 17:34 Creatine Kinase 54 CK-MB (CK-2) 1.14 Troponin I < 0.012 Impressions: Chest X-Ray 06/10/20 17:19 IMPRESSION: NO ACUTE RADIOGRAPHIC FINDING IN THE CHEST. Head CT 06/10/20 17:19 IMPRESSION: NORMAL BRAIN CT WITHOUT CONTRAST. EVIDENCE OF ACUTE STROKE: NO. Assessment and Plan - Plan Summary Summary: Patient symptoms are not easily explainable. She denies any symptoms at the time of my exam. We will work-up as a possible TIA although I see no risk factors here. MRI will be obtained as well as echo and carotid Doppler studies. She will be monitored on telemetry She does have a leukocytosis which I cannot really explain. Will obtain a UA. Chest x-ray shows no acute findings. CBC will be repeated in a.m. I will hold off on any antibiotics for now as there is no source of infection - Time Time Spent with patient: 25-34 minutes Medications reviewed and adjusted accordingly: Yes Anticipated Discharge Disposition: Home, Self Care Anticipated Discharge Timeframe: within 24 hours
--- NOTE | 2020-06-10 20:52 | EKG REPORT ---
SEVERITY:- NORMAL ECG - SINUS RHYTHM : Confirmed by: Sly Obrien MD 10-Jun-2020 20:52:04
[2020-06-11 00:40] LABS: APPEARANCE,URINE SLIGHTLY-CLOUDY; BILIRUBIN,URINE NEGATIVE (NEGATIVE); COLOR,URINE YELLOW; GLUCOSE, URINE NEGATIVE (NEGATIVE); KETONES,URINE NEGATIVE (NEGATIVE); PROTEIN,URINE NEGATIVE (NEGATIVE); URINE SPECIFIC GRAVITY 1.019
[2020-06-11 06:41] LABS: ABSOLUTE EOSINOPHILS # (AUTO) 0.4 10^3/uL (0.0-0.6); ABSOLUTE LYMPHOCYTES (AUTO) 1.1 10^3/uL (0.5-4.7); ABSOLUTE MONOCYTES (AUTO) 0.7 10^3/uL (0.1-1.4); ABSOLUTE NEUT (AUTO) 6.7 10^3/uL (1.7-8.2); BASOPHILS % (AUTO) 0.4 % (0-2); HEMATOCRIT 34.9 % (36.0-47.0); HEMOGLOBIN 11.8 g/dL (12.0-15.5); LYMPHOCYTES % (AUTO) 12.7 % (13-45); MEAN CORPUSCULAR HEMOGLOBIN 26.8 pg (27.0-33.4); MEAN CORPUSCULAR HGB CONC 33.8 g/dL (32.0-36.0); MEAN CORPUSCULAR VOLUME 79 fl (80-97); PLATELET COUNT 352 10^3/uL (150-450); RED CELL DISTRIBUTION WIDTH 15.3 % (11.5-14.0); SEGMENTED NEUTROPHILS % (AUTO) 74.9 % (42-78); TOTAL CELLS COUNTED % (AUTO) 100 %; WHITE BLOOD COUNT 8.9 10^3/uL (4.0-10.5)
[2020-06-11 07:04] LABS: CHOLESTEROL 145.23 mg/dL (0-200); TRIGLYCERIDES 176 mg/dL (<150)
[2020-06-11 07:15] LABS: DIRECT LDL 94 mg/dL (<100)
[2020-06-11 07:24] LABS: VLDL CHOLESTEROL 35.2 mg/dL (10-31)
[2020-06-11] MEDS ORDERED: ASPIRIN 81 MG TABLET, ENT COATED PO SCH (10:00)
[2020-06-11] MEDS ORDERED: ENOXAPARIN SODIUM INJ 40 MG/0.4 ML DISP.SYRIN SUBCUT SCH (10:00)
--- NOTE | 2020-06-11 12:22 | RADIOLOGY REPORT (SQ) ---
EXAM DESCRIPTION: MRI HEAD WITHOUT IMAGES COMPLETED DATE/TIME: 06/11/2020 8:49 am REASON FOR STUDY: stroke/TIA COMPARISON: CT of the brain 06/10/2020 TECHNIQUE: Multiplanar imaging includes non-contrasted T1, T2, FLAIR, and diffusion with ADC map seq uences. Images stored on PACS. LIMITATIONS: None. FINDINGS: ANATOMY: No anomalies. Normal vascular flow voids. Pituitary fossa normal. CSF SPACES: Normal in size and contour. No hemorrhage. CEREBRUM: Sulci and gyri normal in size and contour. Normal white matter signal on FLAIR imaging. No evidence of hemorrhage, mass, or extraaxial fluid collection. POSTERIOR FOSSA: No signal alteration. No hemorrhage. No edema, masses or mass effect. Internal mayelin tory canals, cerebello-pontine angles, mastoids normal. DIFFUSION IMAGING: Negative for acute or sub-acute infarction. ORBITS: No masses. Globes normal. PARANASAL SINUSES: No fluid levels. Mucosa normal. OTHER: No other significant finding. IMPRESSION: NORMAL MRI OF THE BRAIN WITHOUT INTRAVENOUS GADOLINIUM CONTRAST. EVIDENCE OF ACUTE STROKE: NO. TECHNICAL DOCUMENTATION: JOB ID: [id number] 2010 [employer]- All Rights Reserved Reading location - IP/workstation name: [email or web address]
--- NOTE | 2020-06-11 12:25 | RADIOLOGY REPORT (SQ) ---
EXAM DESCRIPTION: CAROTID DOPPLER IMAGES COMPLETED DATE/TIME: 06/11/2020 10:31 am REASON FOR STUDY: Transient weakness COMPARISON: None. TECHNIQUE: Grayscale ultrasound, Doppler velocity and spectra, and color Doppler images acquired of the extra-cranial carotid and vertebral arteries. Images stored on PACS. LIMITATIONS: None. FINDINGS: RIGHT CAROTID CCA Velocities: Within normal limits. ICA Velocities Peak systolic 110 cm/s. End diastolic 38 cm/s. Proximal ICA/CCA peak systolic ratio 1.1. Spectra normal. No significant plaque. LEFT CAROTID CCA Velocities: Within normal limits. ICA Velocities Peak systolic 101 cm/s. End diastolic 27 cm/s. Proximal ICA/CCA peak systolic ratio 0.8. Spectra normal. No significant plaque. VERTEBRAL ARTERIES: Antegrade flow. Normal waveforms. SUBCLAVIAN ARTERIES: No finding. OTHER: No other significant finding. IMPRESSION: NO HEMODYNAMICALLY SIGNIFICANT STENOSIS. COMMENT: Quality ID #[id number]: Velocity criteria are extrapolated from the diameter data as defined by t he Society of Radiologists in Ultrasound Consensus Conference. Radiology 2003: 229; 340-346. TECHNICAL DOCUMENTATION: JOB ID: [id number] 2010 [employer]- All Rights Reserved Reading location - IP/workstation name: [email or web address]
--- NOTE | 2020-06-11 14:34 | PDOC DISCHARGE SUMMARY ---
Impression - Admit/DC Date/PCP Admission Date/Primary Care Provider: 06/10/20 18:17 Discharge Date: 06/11/20 - Discharge Diagnosis (1) Aphasia Is this a current diagnosis for this admission?: Yes (2) Right arm numbness Is this a current diagnosis for this admission?: Yes - Assessment Summary: Patient symptoms are not easily explainable. She denies any symptoms at the time of my exam. We will work-up as a possible TIA although I see no risk factors here. MRI will be obtained as well as echo and carotid Doppler studies. She will be monitored on telemetry She does have a leukocytosis which I cannot really explain. Will obtain a UA. Chest x-ray shows no acute findings. CBC will be repeated in a.m. I will hold off on any antibiotics for now as there is no source of infection - Additional Information Resuscitation Status: Full Code Discharge Diet: Cardiac Discharge Activity: Activity As Tolerated Referrals: SURY SWEET MD [HONORARY] - 06/25/20 9:00 am (Meeting with Dr. Villanueva via telehealth call) Home Medications: No Home Medications 06/11/20 History of Present Illiness History of Present Illness: JOSELO PIERSON is a 40 year old female Who presented emergency room with numbness and tingling of upper extremity. Patient states she also had some loss of vision in both eyes. There was no associated nausea vomiting although she states she had like a posterior headaches. She said the symptoms lasted for about 2 hours. She went on to walk she was on her way and because her symptoms persisted she decided to come to the emergency room to get checked. She however says her symptoms are resolved by the time of my exam. She denies any prior history of such symptoms. She does smoke about a pack of cigarettes a week and denies any current alcohol abuse or drug use. She denies any other medication use. She denies any significant medical history Hospital Course Hospital Course: Patient was monitored on telemetry floor. She was monitored according to the stroke protocol. She had no further deficits or any other symptoms while she was in hospital. MRI done reveals no abnormalities and carotid Doppler studies done was also negative. Echocardiogram was done however results are still pending at the time of discharge. Patient was hemodynamically stable throughout her hospital stay. With resolution of her presenting symptoms and hemodynamic stability as she has been discharged home for outpatient follow-up. Patient has been advised on the need to lose weight, pursuing a low-cholesterol diet and smoking cessation Physical Exam Vital Signs: Temp Pulse Resp BP Pulse Ox 97.8 F 64 16 101/56 L 100 06/11/20 11:01 06/11/20 11:01 06/11/20 11:01 06/11/20 11:01 06/11/20 11:01 Intake & Output 06/10/20 06/11/20 06/12/20 06:59 06:59 06:59 Intake Total 200 Output Total 0 Balance 200 Weight 97.1 kg General appearance: PRESENT: no acute distress, well-developed, well-nourished Head exam: PRESENT: atraumatic, normocephalic Eye exam: PRESENT: conjunctiva pink, EOMI, PERRLA. ABSENT: scleral icterus Ear exam: PRESENT: normal external ear exam Mouth exam: PRESENT: moist, tongue midline Neck exam: ABSENT: carotid bruit, JVD, lymphadenopathy, thyromegaly Respiratory exam: PRESENT: clear to auscultation mary. ABSENT: rales, rhonchi, wheezes Cardiovascular exam: PRESENT: RRR. ABSENT: diastolic murmur, rubs, systolic murmur Pulses: PRESENT: normal dorsalis pedis pul Vascular exam: PRESENT: normal capillary refill GI/Abdominal exam: PRESENT: normal bowel sounds, soft. ABSENT: distended, guarding, mass, organolmegaly, rebound, tenderness Rectal exam: PRESENT: deferred Extremities exam: PRESENT: full ROM. ABSENT: calf tenderness, clubbing, pedal edema Neurological exam: PRESENT: alert, awake, oriented to person, oriented to place, oriented to time, oriented to situation, CN II-XII grossly intact. ABSENT: motor sensory deficit Psychiatric exam: PRESENT: appropriate affect, normal mood. ABSENT: homicidal ideation, suicidal ideation Skin exam: PRESENT: dry, intact, warm. ABSENT: cyanosis, rash Results Laboratory Results: WBC 8.9 10^3/uL (4.0-10.5) 06/11/20 05:40 RBC 4.40 10^6/uL (3.72-5.28) 06/11/20 05:40 Hgb 11.8 g/dL (12.0-15.5) L 06/11/20 05:40 Hct 34.9 % (36.0-47.0) L 06/11/20 05:40 MCV 79 fl (80-97) L 06/11/20 05:40 MCH 26.8 pg (27.0-33.4) L 06/11/20 05:40 MCHC 33.8 g/dL (32.0-36.0) 06/11/20 05:40 RDW 15.3 % (11.5-14.0) H 06/11/20 05:40 Plt Count 352 10^3/uL (150-450) 06/11/20 05:40 Lymph % (Auto) 12.7 % (13-45) L 06/11/20 05:40 [place] % (Auto) 8.0 % (3-13) 06/11/20 05:40 Eos % (Auto) 4.0 % (0-6) 06/11/20 05:40 Baso % (Auto) 0.4 % (0-2) 06/11/20 05:40 Absolute Neuts (auto) 6.7 10^3/uL (1.7-8.2) 06/11/20 05:40 Absolute Lymphs (auto) 1.1 10^3/uL (0.5-4.7) 06/11/20 05:40 Absolute Monos (auto) 0.7 10^3/uL (0.1-1.4) 06/11/20 05:40 Absolute Eos (auto) 0.4 10^3/uL (0.0-0.6) 06/11/20 05:40 Absolute Basos (auto) 0.0 10^3/uL (0.0-0.2) 06/11/20 05:40 Seg Neutrophils % 74.9 % (42-78) 06/11/20 05:40 PT 13.1 SEC (11.4-15.4) 06/10/20 17:34 INR 0.97 06/10/20 17:34 APTT 27.9 SEC (23.5-35.8) 06/10/20 17:34 Sodium 139.3 mmol/L (137-145) 06/10/20 17:34 Potassium 4.0 mmol/L (3.6-5.0) 06/10/20 17:34 Chloride 107 mmol/L (98-107) 06/10/20 17:34 Carbon Dioxide 23 mmol/L (22-30) 06/10/20 17:34 Anion Gap 9 (5-19) 06/10/20 17:34 BUN 11 mg/dL (7-20) 06/10/20 17:34 Creatinine 0.64 mg/dL (0.52-1.25) 06/10/20 17:34 Est GFR ( Amer) > 60 (>60) 06/10/20 17:34 Est GFR (MDRD) Non-Af > 60 (>60) 06/10/20 17:34 Glucose 125 mg/dL (75-110) H 06/10/20 17:34 POC Glucose 136 mg/dL (70-110) H 06/10/20 17:32 Hemoglobin A1c % 5.1 % (4.7-6.0) 06/11/20 05:40 Calcium 9.4 mg/dL (8.4-10.2) 06/10/20 17:34 Total Bilirubin 0.3 mg/dL (0.2-1.3) 06/10/20 17:34 Direct Bilirubin 0.2 mg/dL (0.0-0.4) 06/10/20 17:34 Neonat Total Bilirubin Not Reportable 06/10/20 17:34 Neonat Direct Bilirubin Not Reportable 06/10/20 17:34 Neonat Indirect Bili Not Reportable 06/10/20 17:34 AST 19 U/L (14-36) 06/10/20 17:34 ALT 18 U/L (<35) 06/10/20 17:34 Alkaline Phosphatase 74 U/L (38-126) 06/10/20 17:34 Creatine Kinase 54 U/L (30-135) 06/10/20 17:34 CK-MB (CK-2) 1.14 ng/mL (<4.55) 06/10/20 17:34 Troponin I < 0.012 ng/mL 06/10/20 17:34 Total Protein 7.3 g/dL (6.3-8.2) 06/10/20 17:34 Albumin 4.2 g/dL (3.5-5.0) 06/10/20 17:34 Triglycerides 176 mg/dL (<150) H 06/11/20 05:40 Cholesterol 145.23 mg/dL (0-200) 06/11/20 05:40 LDL Cholesterol Direct 94 mg/dL (<100) 06/11/20 05:40 VLDL Cholesterol 35.2 mg/dL (10-31) H 06/11/20 05:40 HDL Cholesterol 31 mg/dL (>40) L 06/11/20 05:40 Urine Color YELLOW 06/10/20 23:39 Urine Appearance SLIGHTLY-CLOUDY 06/10/20 23:39 Urine pH 6.0 (5.0-9.0) 06/10/20 23:39 Ur Specific [place] 1.019 06/10/20 23:39 Urine Protein NEGATIVE mg/dL (NEGATIVE) 06/10/20 23:39 Urine Glucose (UA) NEGATIVE mg/dL (NEGATIVE) 06/10/20 23:39 Urine Ketones NEGATIVE mg/dL (NEGATIVE) 06/10/20 23:39 Urine Blood NEGATIVE (NEGATIVE) 06/10/20 23:39 Urine Nitrite (Reflex) NEGATIVE (NEGATIVE) 06/10/20 23:39 Urine Bilirubin NEGATIVE (NEGATIVE) 06/10/20 23:39 Urine Urobilinogen 2.0 mg/dL (<2.0) H 06/10/20 23:39 Leukocyte Esterase Rfl NEGATIVE (NEGATIVE) 06/10/20 23:39 Urine RBC (Auto) 2 /HPF 06/10/20 23:39 Urine WBC (Reflex) 3 /HPF 06/10/20 23:39 Squamous Epi Cells Auto 4 /HPF 06/10/20 23:39 Urine Mucus (Auto) RARE /LPF 06/10/20 23:39 Urine Ascorbic Acid NEGATIVE (NEGATIVE) 06/10/20 23:39 06/10/20 17:34 CK-MB (CK-2) 1.14 Troponin I < 0.012 EKG Comments: Normal sinus rhythm Impressions: Chest X-Ray 06/10/20 17:19 IMPRESSION: NO ACUTE RADIOGRAPHIC FINDING IN THE CHEST. Head CT 06/10/20 17:19 IMPRESSION: NORMAL BRAIN CT WITHOUT CONTRAST. EVIDENCE OF ACUTE STROKE: NO. Head MRI 06/11/20 00:00 IMPRESSION: NORMAL MRI OF THE BRAIN WITHOUT INTRAVENOUS GADOLINIUM CONTRAST. EVIDENCE OF ACUTE STROKE: NO. Carotid Doppler Study 06/11/20 18:34 IMPRESSION: NO HEMODYNAMICALLY SIGNIFICANT STENOSIS. Plan Health Concerns: Follow-up with PCP re-echocardiogram result Time Spent: Less than 30 Minutes Stroke Is this a Stroke Patient?: No Acute Heart Failure Is this a Heart Failure Patient?: No
[2020-06-11] MEDS ORDERED: INFLUENZA QUAD (6MOS+) 2020-21 VAC 0.5 ML SYR IM ONE (15:15)
[2020-06-11 16:23] VITALS: BP 129/71
--- NOTE | 2020-06-11 22:34 | XCELERA REPORT ---
[address] [address] Transthoracic Echocardiogram Report Name: JOSELO PIERSON Age: 40 yrs Gender: Female : 1980 Patient Status: Inpatient Patient Location: [facility]^A Study Date: 06/11/2020 07:47 AM Height: 66 in Weight: 215 lb BSA: 2.1 m2 Procedure: A two-dimensional transthoracic echocardiogram with color flow and Doppler was performed. Study Quality: Poor. Reason For Study: TIA History: TIA. Ordering Physician: KANWAL REESE Performed By: Bernadette Hanks Interpretation Summary There is no obvious cardiac source of embolus noted on this transthoracic echocardiogram. Follow-up with a ED is suggested if cardiac source is still suspected. The left ventricle is normal in size. There is normal left ventricular wall thickness. LV EF is > THAN 65%.% Left ventricular systolic function is normal. Doppler measurements suggest normal left ventricular diastolic function The left ventricular wall motion is normal. There is no thrombus. No ASD,VSD,o PFO seen. The right ventricle is not well visualized secondary to technical limitations The right atrium is normal. Right atrium not well visualized secondary to technical limitations The left atrial size is normal. There is no evidence of mitral valve prolapse. There is no vegetation seen on the mitral valve. There is no mitral valve stenosis. There is a trace amount of mitral regurgitation There is no aortic valvular vegetation. There is no aortic valve stenosis No aortic regurgitation is present. There is no tricuspid stenosis. There is a trace amount of tricuspid regurgitation Tricuspid regurgitation jet envelope not well defined to measure RV systolic pressure accurately. There is no pulmonic valvular stenosis. There is no pulmonic valvular regurgitation. The aortic root is normal size. The inferior vena cava appeared normal and decreased > 50% with respiration (RAP 5-10 mmHg) There is no obvious cardiac source of embolus noted on this transthoracic echocardiogram. Follow-up with a ED is suggested if cardiac source is still suspected MMode/2D Measurements & Calculations RVDd: 2.4 cm LVIDd: 4.9 cm FS: 38.3 % Ao root diam: 2.3 cm IVSd: 0.85 cm LVIDs: 3.0 cm EDV(Teich): 110.3 ml Ao root area: 4.0 cm2 LVPWd: 0.84 cm ESV(Teich): 34.8 ml EF(Teich): 68.4 % Doppler Measurements & Calculations MV E max rah: MV dec slope: Ao V2 max: LV V1 max P.3 cm/sec 460.1 cm/sec2 165.5 cm/sec 5.3 mmHg MV A max rah: MV dec time: 0.19 secAo max PG: LV V1 max: 79.1 cm/sec 11.0 mmHg 114.6 cm/sec MV E/A: 1.1 PA V2 max: 115.5 cm/sec PA max P.3 mmHg Left Ventricle The left ventricle is normal in size. There is normal left ventricular wall thickness. LV EF is > THAN 65%.%. Left ventricular systolic function is normal. Doppler measurements suggest normal left ventricular diastolic function. The left ventricular wall motion is normal. There is no thrombus. No ASD,VSD,o PFO seen. Right Ventricle The right ventricle is not well visualized secondary to technical limitations. Atria The right atrium is normal. Right atrium not well visualized secondary to technical limitations. The left atrial size is normal. Mitral Valve There is no evidence of mitral valve prolapse. There is no vegetation seen on the mitral valve. There is no mitral valve stenosis. There is a trace amount of mitral regurgitation. Aortic Valve There is no aortic valvular vegetation. There is no aortic valve stenosis. No aortic regurgitation is present. Tricuspid Valve There is no tricuspid stenosis. There is a trace amount of tricuspid regurgitation. Tricuspid regurgitation jet envelope not well defined to measure RV systolic pressure accurately. Pulmonic Valve There is no pulmonic valvular stenosis. There is no pulmonic valvular regurgitation. Great Vessels The aortic root is normal size. The inferior vena cava appeared normal and decreased > 50% with respiration (RAP 5-10 mmHg). Effusions There is no pericardial effusion. : KANWAL REESE Lakshmi
[2020-06-12] MEDS ORDERED: INFLUENZA QUAD (6MOS+) 2020-21 VAC 0.5 ML SYR IM ONE (08:00)
== END 2020-06-11 15:30 | disposition home or self-care (01) ==
LOC: ER 17:08 → EH 18:17 → 3W 20:16
PROVIDERS: ADMIT Internal Medicine; ATTEND Internal Medicine
DX: R47.01 Aphasia (principal); R20.0 Anesthesia of skin; D72.829 Elevated white blood cell count, unspecified; R51.9 Headache, unspecified; R20.2 Paresthesia of skin; H54.3 Unqualified visual loss, both eyes; F17.210 Nicotine dependence, cigarettes, uncomplicated; F31.9 Bipolar disorder, unspecified; Z79.899 Other long term (current) drug therapy; Z23 Encounter for immunization; R29.700 NIHSS score 0
CPT/HCPCS: 93005; 99285; 36415 ×2; 82553; 82962; 82550; 85025 ×2; 85610; 85730; 80053; 81001; 84484; 83036; 80061; 93306; 93880; 70551; 71045; 70450; 90686; 93010; G0378 ×3; G0008; J3490 ×2; 90471